=== PATIENT | male | born 1975 | race African-American/Black ===

== ENCOUNTER 2022-05-19 06:15 | Emergency (ER) | payer OTHER ==
[~2022-05-19] VITALS: Ht 198.1 cm; Wt 97.5 kg
[2022-05-19] MEDS ORDERED: HYDROCODONE/APAP 5-325MG TABLET ONE (07:14)
[2022-05-19] MEDS ORDERED: HYDROCODONE/APAP 5-325MG TABLET PO ONE (07:15)
--- NOTE | 2022-05-19 07:19 | NUR ---
PATIENT WAS SEEN BY MD. MEDICATION GIVEN ORDERED (WITH CRACKERS). AWAITING IMAGING
--- NOTE | 2022-05-19 08:44 | NUR ---
Patient states pain has diminished. Awaiting radiology imaging report
--- NOTE | 2022-05-19 09:41 | NUR ---
Patient states "am going to leave, i cannot wait anymore", dr ramos aware. I obtained patients phone number to call him with follow up
--- NOTE | 2022-05-19 09:45 | NUR ---
We called patient just now and notified him of xray results (normal)
== END 2022-05-19 09:52 | disposition home or self-care (01) ==
LOC: ER 06:21
DX: S63.501A Unspecified sprain of right wrist, initial encounter (principal); S20.212A Contusion of left front wall of thorax, initial encounter; R07.81 Pleurodynia; Y04.0XXA Assault by unarmed brawl or fight, initial encounter; Y92.89 Other specified places as the place of occurrence of the external cause
CPT/HCPCS: 71046; 73110; 73130; A4663